=== PATIENT | female | born 1995 | race Caucasian/White ===

== ENCOUNTER 2023-10-13 05:53 | Day surgery (SDC) | payer OTHER, SELFPAY ==
[2023-10-09 11:37] LABS: Basophils % 0.3 %; Eosinophils # 0.1 10^3/uL (0.0-0.8); Eosinophils % 1.4 %; Hematocrit 43.7 % (36-47); Lymphocytes # 2.4 10^3/uL (0.8-4.8); Lymphocytes % 32.2 %; Mean Corpuscular HGB Conc 32.5 g/dL (30-55); Mean Corpuscular Hemoglobin 29.5 pg (27-33); Mean Corpuscular Volume 90.7 fl (85-98); Mean Platelet Volume 10.5 fL (7.4-10.4); Monocytes # 0.5 10^3/uL (0.2-0.9); Monocytes % 6.9 %; Neutrophils # 4.33 10^3/uL (1.8-7.7); Neutrophils % 58.8 %; Nucleated Red Blood Cells % 0 %; Platelet Count 215 10^3/cmm (157-399); Red Blood Count 4.82 10^6/uL (3.85-5.65); Red Cell Distribution Width 12.1 % (12.1-15.1); White Blood Count 7.36 10^3/uL (3.29-11.43)
[2023-10-09 11:45] LABS: OR HCG Qualitative Urine Negative (Negative)
[2023-10-09 11:49] LABS: Add Urine Microscopic? YES; Bilirubin Urine Neg (Negative); Blood Urine 2+ (Negative); Glucose Urine UA Norm (Normal); Ketones Urine Negative (Negative); Leukocyte Esterase Urine Trace (Negative); Nitrate Urine Negative (Negative); Protein Urine Neg (Negative); Urine Appearance Clear (CLEAR); Urine Color Yellow (Yellow); Urobilinogen Urine Neg (Negative); pH Urine 5 (5-7)
[2023-10-09 11:51] LABS: Bacteria Urine 2+ /hpf; RBC Urine 0-4 /hpf (0-2); WBC Urine 0-4 /hpf (0-5)
[2023-10-09 11:53] LABS: Add Urine Culture? Yes; Mucus Urine TRACE /hpf
[2023-10-09 11:54] LABS: Alanine Aminotransferase 14 U/L (0-33); Albumin Level 4.6 g/dL (3.5-5.2); Alkaline Phosphatase 62 U/L (35-105); Anion Gap 13.4 (5-19); Aspartate Amino Transferase 18 U/L (0-32); Blood Urea Nitrogen 9 mg/dL (6-20); Calcium 9.2 mg/dL (8.5-10.5); Carbon Dioxide 28 mmol/L (22-29); Chloride 101 mmol/L (98-107); Globulin 2.7 g/dL (1.3-4.6); Glomerular Filtration Rate 98.3 mL/min (90-130); Glucose 65 mg/dL (65-115); Osmolality Calculated 285 mOsm/kg (285-295); Potassium 3.4 mmol/L (3.5-5.1); Sodium 139 mmol/L (136-145); Total Bilirubin 0.5 mg/dL (0.15-1.2); Total Protein 7.3 g/dL (6.6-8.7)
[2023-10-13] VITALS (10 sets, daily range): BP systolic 98–117; BP diastolic 57–68; PULSE 43–67; RESP 16–20; TEMP 36.1–36.8; O2SAT 98–100; BMI 22.8
[2023-10-13 06:09] LABS: OR HCG Qualitative Urine Negative (Negative)
[2023-10-13] MEDS: sodium chloride 0.9% 1,000 ML 30 ML IV (06:21)
--- NOTE | 2023-10-13 06:52 | W.PM.OPSUD ---
Surgery/Procedure H&P Update DATE OF PROCEDURE: October 13, 2023 DATE H&P PERFORMED: 10/05/23 H&P UPDATE INFORMATION: I have reviewed H&P completed within last 30 days, I have examined patient prior to procedure and No changes to prior documentation PREOP DIAGNOSIS: Desire permanent sterilization PLANNED PROCEDURE: Operation Date: 10/13/23 07:00 Proposed Procedures p Laparoscopic bilateral salpingectomy 28719,Z30.2(Not Applicable) - Maik Jewell MD
[2023-10-13] MEDS: ceFAZolin 2,000 MG in sodium chloride 0.9% (plus) 50 ML 100 MG IV (07:00)
--- NOTE | 2023-10-13 07:01 | P.ANESUD_ITS ---
Pre-Anesthetic Update Pre-Anesthetic Assessment: Date of Surgery/Procedure: 10/13/23 Preop Sia gnosis: Desire permanent sterilization Proposed Procedure: Operation Date: 10/13/23 07:00 Proposed Procedures p Laparoscopic bilateral salpingectomy 71126,Z30.2(Not Applicable) - Maik Jewell MD Any changes to Pre-Anesthetic Assessment?: No Last Intake: Intake Last Liquid Date 10/12/23 Last Liquid Time 18:00 Last Solid Date 10/12/23 Last Solid Time 18:00 Vitals: Temperature 97.1 F L 10/13/23 06:02 Temperature Source Temporal Artery S can 10/13/23 06:02 Pulse Rate 49 L 10/13/23 06:02 Respiratory Rate 16 10/13/23 06:02 Blood Pressure 111/68 10/13/23 06:02 Blood Pressure Conchita n 82 10/13/23 06:02 Pulse Oximetry 99 10/13/23 06:02 Oxygen Delivery Me thod Room Air 10/13/23 06:02 Exam: Pre-Anes Outpt Exam: alert, oriented x 3, clear to auscultation bilaterally and regular rate & rhythm Cardiac Studies: No Data to Display
[2023-10-13] MEDS: BUPivacaine 0.5% INJ 30 mL 10 ML INJECTION (07:39)
--- NOTE | 2023-10-13 08:08 | PM.OP ---
Operative Report Date of procedure: October 13, 2023 Pre-op diagnosis: Desire permanent sterilization Post-op diagnosis: same Post-op diagnosis: Right side abdominal adhesion Post-op findings: Right side abdominal adhesions Procedure done: Diagnostic laparoscopy Laparoscopic bilateral salpingectomy Lysis of adhesions Specimens removed/disposition: Left and right fallopian tubes Surgeon: Maik Jewell MD Estimated blood loss (mL): 5 IV fluids (mL): 500 Urine output (mL): 100 Complications: None Findings: Patient's right abdominal wall Procedure: After informed consent, the patient was taken to the operating room where general anesthesia was administered. She was placed in the dorsal lithotomy position and prepped and draped in sterile fashion. Pre-Procedure Time-Out verifying the correct patient identity, correct procedure verified with consent, correct site and side, correct patient position, availability of correct implants and any special equipment or requirements was performed and acknowledge by the OR team. The patient was examined under anesthesia and found to have a normal uterus with normal adnexa. A weighted speculum was placed in the vagina, and the anterior lip of cervix was grasped with the single toothed tenaculum. A uterine manipulator was advanced into the endocervical canal and uterus. The tenaculum was removed after uterine manipulator was secured. The speculum was removed from the vagina. An intraumbilical incision was made with a scalpel. While tenting up on the abdomen, a Verres needle was admitted into the intra-abdominal cavity. A saline drop test was performed and noted to be within normal limits. Pneumoperitoneum was attained with 4 liters of carbon dioxide. The Verres needle was removed. A 5 mm Opitc view trocar and sleeve were admitted into the abdomen and laparoscopic confirmation of location was achieved. A second incision was made 3 cm above the symphysis pubis, and a 5 mm trocar sleeves were admitted into the abdomen under direct laparoscopic visualization without complication. The abdominal survey revealed normal abdominal anatomy with the exception of adhesion to the right side anterior abdominal wall. A 5 mm blunt probe was advanced through the second trocar sleeve, and light manipulation of ovaries and uterus to assess the posterior aspects was performed. The pelvic survey shows normal uterus, left and right adnexa. The right ovary was noted with a follicular cyst. The right abdominal wall showed adhesion to colon the adhesion was fulgurated and transected with good hemostasis with the Ligasure. The patient was placed into Trendelenburg position. The fallopian tubes were inspected bilaterally and the fimbriated ends of the fallopian tubes were visualized bilaterally. Attention was then directed to the right side. The fallopian tube and mesosalpinx were grasped and the underlying mesosalpinx was cauterized and cut using the Ligasure device. Serial cauterization and cutting was used to separate the fallopian tube from the underlying mesosalpinx until it could be amputated cutting it approximated 2 cm from the cornua. Attention was then turned to the contralateral fallopian tube, which was removed in similar fashion. Both specimens were removed through the trocar and sent to pathology. The instruments were removed. The suprapubic trocar port was removed under direct visualization insuring good hemostasis. The carbon dioxide was allowed to escape from the abdomen. The intraumbilical trocar sleeve was withdrawn under visualization with laparoscope in the sleeve to insure hemostasis. The skin incisions were closed with 3-O Monocryl subcuticular stich and Dermabond. The instruments were removed from the vagina, and excellent hemostasis was noted. The patient tolerated the procedure well, and sponge, lap and needle count were correct times two. The patient was taken to the recovery room in good condition.
[2023-10-13] MEDS: HYDROcodone-acetaminophen 5-325 mg Tablet 1 TAB PO (09:06)
--- NOTE | 2023-10-13 09:16 | SUR.PREOP ---
0618 pyxis does not have any 500cc bolus available and 1000 cc bag started bolus and [address] order
--- NOTE | 2023-10-13 14:56 | ANE.PACU2 ---
Inpatient post-anesthesia follow up: Airway intact: Yes Vital signs: Temperature 98.2 F Pulse Rate 48 Respiratory Rate 17 Blood Pressure 117/62 Pulse Oximetry 98 Oxygen Delivery Me thod Room Air Oxygen Flow Rate Fraction of Inspir ed Oxygen Hydration adequate: Yes Nausea and vomiting: No Pain level: 2 Mental status: Baseline
== END 2023-10-13 09:35 | disposition home or self-care (01) ==
PROVIDERS: Visit Provider Obstetrics & Gynecology
PROC: (CPT 58661; principal; 2023-10-13 07:00)
PROC: (CPT 58661; 2023-10-13 07:00)
DX: Z30.2 Encounter for sterilization (principal); K66.0 Peritoneal adhesions (postprocedural) (postinfection)
CPT/HCPCS: 58661; 36415; 80053; 81001; 81025; 84703; 85025; 86850; 86900; 87086; 88302; J0690; J1100; J2250; J2405; J2704; J2710; J3010; J3490; J7030